=== PATIENT | male | born 1990 | race African-American/Black ===

== ENCOUNTER 2024-11-25 18:36 | Inpatient (IN) | payer MEDICAID ==
[~2024-11-25] VITALS: Ht 172.7 cm; Wt 61.3 kg
[2024-11-25 18:38] VITALS: O2SAT 98
[2024-11-25 19:41] LABS: BASOPHILS % 0.6 % (0.0-2.0); EOSINOPHILS % 2.0 % (0.0-5.0); HEMATOCRIT. 49.3 % (42.0-52.0); HEMOGLOBIN. 16.2 g/dL (14.0-18.0); LYMPHOCYTES % 26.0 % (20.0-50.0); MEAN PLATELET VOLUME 8.6 fl (7.4-10.4); MONOCYTES % 9.0 % (2.0-8.0); NEUTROPHILS % 62.4 % (40.0-76.0); PLATELET 203 x1000/uL (130-400); RED BLOOD CELL COUNT 5.73 mill/uL (4.7-6.1); RED CELL DISTRIBUTION WIDTH 14.3 % (11.6-14.6)
[2024-11-25] MEDS: KETOROLAC 15MG/ML VIAL IV NR (20:13)
[2024-11-25] MEDS: ONDANSETRON HCL 4MG/2ML INJ IV NR (20:14)
[2024-11-25] MEDS: SODIUM CHLORIDE 0.9% 1,000 ML IV ONE ×2 (20:15→21:15)
[2024-11-25 20:27] LABS: TROPONIN I HIGH SENSITIVITY < 4 ng/L (3.0-53)
[2024-11-25 20:40] LABS: CREATININE 0.8 mg/dL (0.6-1.3); UREA NITROGEN BLOOD 9 mg/dL (9-23)
[2024-11-25 20:42] LABS: ASPARTATE AMINOTRANSFERASE 21 IU/L (<34)
[2024-11-25 20:43] LABS: BILIRUBIN DIRECT 0.2 mg/dL (<=3.0); BILIRUBIN TOTAL 0.8 mg/dL (0.1-1.0); PROTEIN TOTAL 6.4 g/dL (6.0-8.3)
[2024-11-25] MEDS: LORAZEPAM 2MG/ML UD SYRINGE IV NR (21:33)
[2024-11-26 00:35] VITALS: BP 113/79; PULSE 58; RESP 18; TEMP 36.2512
[2024-11-26] MEDS: HALOPERIDOL LACTATE 5MG/ML VIAL IM ONE ×2 (00:35)
[2024-11-26 08:00] VITALS: BP 128/84; PULSE 62; RESP 20; TEMP 37.1; O2SAT 100
[2024-11-26] MEDS: PANTOPRAZOLE 40MG DR TABLET PO SCH (08:27)
[2024-11-26] MEDS: FOLIC ACID 1MG TABLET PO SCH (08:27)
[2024-11-26] MEDS: MULTIVITAMINS,THER W-MINERALS TABLET PO SCH (08:27)
[2024-11-26] MEDS: THIAMINE HCL 100MG TABLET PO SCH (08:28)
[2024-11-26 12:00] VITALS: BP 128/76; PULSE 81; RESP 20; TEMP 36.7; O2SAT 98
[2024-11-26] MEDS ORDERED: MULTIVITAMINS,THER W-MINERALS TABLET PO SCH (12:15)
[2024-11-26] MEDS ORDERED: THIAMINE HCL 100MG TABLET PO SCH (12:15)
[2024-11-26] MEDS ORDERED: FOLIC ACID 1MG TABLET PO SCH (12:15)
[2024-11-26] MEDS: POTASSIUM CHLORIDE 20MEQ TABLET SR PO NR (13:27)
[2024-11-26] MEDS: ONDANSETRON HCL 4MG/2ML INJ IV PRN (14:56)
[2024-11-26] MEDS: LORAZEPAM 1MG TABLET PO PRN (14:56)
[2024-11-26] MEDS: POLYETHYLENE GLYCOL 3350 (17GM) 1 DOSE PACK PO SCH (15:16)
[2024-11-26 16:00] VITALS: BP 139/82; PULSE 76; RESP 16; TEMP 36.6; O2SAT 98
[2024-11-26] MEDS: HYDROCODONE/ACETAMINOPHEN 5/325MG TABLET PO SCH (16:37)
[2024-11-26 16:55] LABS: CLARITY URINE TURBID (CLEAR); COLOR URINE YELLOW (YELLOW); GLUCOSE URINE NEGATIVE (NEGATIVE); KETONES URINE NEGATIVE (NEGATIVE); LEUKOCYTE ESTERASE URINE NEGATIVE (NEGATIVE); NITRITE URINE NEGATIVE (NEGATIVE); OCCULT BLOOD URINE NEGATIVE (NEGATIVE); PH URINE 8.0 (4.5-8.0); PROTEIN URINE NEGATIVE (NEGATIVE); SPECIFIC GRAVITY URINE 1.015 (1.005-1.030); UROBILINOGEN URINE 1.0 E.U./dL (0.2-1.0)
[2024-11-26 17:05] LABS: BACTERIA URINE 2+; RBC URINE 0-2 /hpf (0-2); SQUAMOUS EPITHELIAL CELL URINE RARE /lpf (RARE/1+); WBC URINE 0-2 /hpf (0-2)
[2024-11-26 17:15] LABS: *AMPHETAMINES SCREEN URINE PRESUMPTIVE POSITIVE (NEGATIVE)
[2024-11-26 17:16] LABS: *BARBITURATES SCREEN URINE NEGATIVE (NEGATIVE); *BENZODIAZEPINES SCREEN URINE NEGATIVE (NEGATIVE); *COCAINE SCREEN URINE NEGATIVE (NEGATIVE)
[2024-11-26 17:17] LABS: CANNABINOID URINE SCREEN PRESUMPTIVE POSITIVE (NEGATIVE); ECSTASY MDMA SCREEN URINE NEGATIVE (NEGATIVE); METHADONE URINE SCREEN NEGATIVE (NEGATIVE); OPIATES URINE SCREEN NEGATIVE (NEGATIVE); PHENCYCLIDINE URINE SCREEN NEGATIVE (NEGATIVE)
[2024-11-26 20:00] VITALS: BP 138/78; PULSE 88; RESP 18; TEMP 36.7; O2SAT 99
[2024-11-26] MEDS ORDERED: SENNOSIDES/DOCUSATE SOD 8.6/50MG TABLET PO PRN (21:00)
[2024-11-27] VITALS: BP 108/75; PULSE 83; RESP 19; TEMP 36.4; O2SAT 98
[2024-11-27 04:00] VITALS: BP 101/58; PULSE 58; RESP 19; TEMP 36.8; O2SAT 98
[2024-11-27 08:00] VITALS: BP 121/79; PULSE 59; RESP 20; TEMP 37.3; O2SAT 96
[2024-11-27] MEDS ORDERED: THIAMINE HCL 100MG TABLET PO SCH (09:00)
[2024-11-27] MEDS: MULTIVITAMINS,THER W-MINERALS TABLET PO SCH (09:30)
[2024-11-27] MEDS: FOLIC ACID 1MG TABLET PO SCH (09:31)
== END 2024-11-27 10:55 | disposition left against medical advice (07) | DRG 425 ==
LOC: ER 18:36 → 7WST 21:08 → EDBD 21:08 → EDBEDREQSVC 21:19 → EDBEDREQTM 21:19 → EDBEDREQ 21:19 → ENRESERV 11-26
PROVIDERS: ADMIT Internal Medicine; ATTEND Internal Medicine
DX: E87.6 Hypokalemia (principal); Z59.00 Homelessness unspecified; F10.939 Alcohol use, unspecified with withdrawal, unspecified; Z53.29 Procedure and treatment not carried out because of patient's decision for other reasons; Y90.0 Blood alcohol level of less than 20 mg/100 ml
CPT/HCPCS: 36415; 80048; 80076; 80305; 80320; 81003; 83605; 83880; 84484; 85025; 93005; 99285; J1630; J1885; J2060; J2405; J7030; G0480